=== PATIENT | male | born 2000 | race Caucasian/White ===

== ENCOUNTER 2021-02-19 13:57 | Outpatient (CLI) | payer OTHER ==
--- NOTE | 2021-02-19 17:08 | MRI Report ---
PROCEDURE: Knee RT W/O INDICATIONS: RT KNEE LCL SPRAIN/PARTIAL TEAR TECHNIQUE: Noncontrast sagittal PD fast spin echo and T2 fast spin echo with fat saturation, sagittal 3-D gradie nt sequence with fat saturation; coronal T1 spin echo and PD fast spin echo with fat saturation, and axial PD fast spin echo with fat saturation through the knee. COMPARISON: None. Findings: Medial meniscus: No surface communication/tear. Lateral meniscus: No surface communication/tear. LIGAMENTS/TENDONS: Patellar tendon: Intact. Distal quadriceps tendon: Intact. Hoffa's fat pad: No evidence of fibrosis or mass. PCL: Intact. ACL: Intact. Lateral collateral ligament complex: No significant abnormality. Posterolateral corner: No significant abnormality. Medial collateral ligament: No significant abnormality.. MARROW: Small focus of T2 hyperintense signal in the posterior aspect of the medial tibial plateau, compatible with contusion. CARTILAGE: No significant chondromalacia, cartilaginous laceration or contusion. Muscles: No significant edema or atrophy. Joint effusion/Eckert's cyst: No large joint effusion. Traced fluid in the popliteal fossa. Subcutaneous soft tissues: No significant edema. IMPRESSION: 1. No evidence of internal derangement. 2. Small area of contusion in the posterior medial tibial plateau. Reviewed by: Vikash Lobo MD on 02/19/2021 5:06 PM PDT Approved by: Vikash Lobo MD on 02/19/2021 5:06 PM PDT Station ID: [id number]
== END 2021-02-19 13:58 | disposition home or self-care (01) ==
LOC: DI 13:57
DX: M23.641 Other spontaneous disruption of lateral collateral ligament of right knee (principal); S80.01XA Contusion of right knee, initial encounter